=== PATIENT | male | born 1945 | race Caucasian/White ===

== ENCOUNTER 2021-11-07 00:41 | Day surgery (SDC) | payer MEDICARE, SELFPAY ==
[2021-10-25 15:10] VITALS: BMI 23.8
--- NOTE | 2021-11-06 16:33 | PM.HPGS ---
History of Present Illness History of Present Illness Consent: Risks, benefits, and alternatives have been discussed and questions answered. Patient agrees to proceed with procedure. Chief complaint: neoplasm screening Narrative: Frank Hahn is a 76 year old male For colon cancer screening. he has had polyps removed in the past. His last colonoscopy was 5 years ago Review of Systems Review of Systems: All systems reviewed & are unremarkable except as noted in HPI and below PMFSH Social History Social History Smoking status: Never smoker Alcohol intake: current Drinks per week: 1 Substance use: never Substance use type: does not use Living arrangements: with family Spiritual care concerns: No Meds Home Medications and Allergies Home Medications Medication Instructions Recorded Confirmed Type aspirin [Adult Low Dose Aspirin] 81 mg PO DAILY 10/25/21 11/07/21 History atorvastatin 40 mg PO HS 10/25/21 11/07/21 History cyclosporine [Restasis] 1 drp EACH EYE Q12H 10/25/21 11/07/21 History dorzolamide-timolol 1 drp EACH EYE BID 10/25/21 11/07/21 History felodipine 10 mg PO DAILY 10/25/21 11/07/21 History glucos sul [id number]-ghq-paona-C-Mn 1 cap PO BID 10/25/21 11/07/21 History [Glucosamine Chondroitin] latanoprost 1 drp EACH EYE HS 10/25/21 11/07/21 History multivitamin with minerals [Men's 1 tablet PO DAILY 10/25/21 11/07/21 History One Daily] quinapril-hydrochlorothiazide 1 tablet PO DAILY 10/25/21 10/25/21 History vit C,L-If-dhpqy-lutein-zeaxan 1 tablet PO BID 10/25/21 10/25/21 History [PreserVision AREDS-2] Allergies Allergy/AdvReac Type Severity Reaction Status Date / Time No Known Allergies Allergy Verified 11/07/21 07:18 Exam Const: General: alert Orientation/consciousness: patient oriented x3 Resp: Auscultation: clear to auscultation bilaterally Cardio: Rhythm: regular rhythm GI: GI Palp: Yes Soft to palpation and No Tenderness to palpation present (GI) Neuro: General: patient oriented x3 Assessment and Plan Assessment and plan (1) Colon cancer screening: Code(s): Z12.11 - Encounter for screening for malignant neoplasm of colon Status: Acute Assessment and Plan: Colonoscopy with possible biopsy or polypectomy or cautery or injection of substances.
[2021-11-07 07:21] VITALS: BP 148/73; PULSE 52; RESP 16; TEMP 36.4; O2SAT 99
[2021-11-07] MEDS: LACTATED RINGERS 1,000 ML 150 ML IV CONT (07:28)
--- NOTE | 2021-11-07 08:19 | WPDANESEPPF ---
Anes - Initial Pre Proc Eval Procedure: Operation Date: 11/07/21 08:30 Proposed Procedures p Screening Colonoscopy - Ata Delvalle MD Date/Time: 11/07/21 08:19 Surgeon: Ata Delvalle MD Pre Op Diagnosis: neoplasm screening Patient Data Age: 76 Gender: M Height: 1.8 m Weight: 79.4 kg Last Vital Signs Temp 97.6 F 11/07/21 07:21 Pulse 52 L 11/07/21 07:21 Resp 16 11/07/21 07:21 BP 148/73 H 11/07/21 07:21 Pulse Ox 99 11/07/21 07:21 Allergies Allergy/AdvReac Type Severity Reaction Status Date / Time No Known Allergies Allergy Verified 11/07/21 07:18 Home Medications Medication Instructions Recorded Confirmed Type aspirin [Adult Low Dose Aspirin] 81 mg PO DAILY 10/25/21 11/07/21 History atorvastatin 40 mg PO HS 10/25/21 11/07/21 History cyclosporine [Restasis] 1 drp EACH EYE Q12H 10/25/21 11/07/21 History dorzolamide-timolol 1 drp EACH EYE BID 10/25/21 11/07/21 History felodipine 10 mg PO DAILY 10/25/21 11/07/21 History glucos sul 3HPv-naj-ziszy-C-Mn 1 cap PO BID 10/25/21 11/07/21 History [Glucosamine Chondroitin] latanoprost 1 drp EACH EYE HS 10/25/21 11/07/21 History multivitamin with minerals [Men's 1 tablet PO DAILY 10/25/21 11/07/21 History One Daily] quinapril-hydrochlorothiazide 1 tablet PO DAILY 10/25/21 10/25/21 History vit C,B-Tu-nngzg-lutein-zeaxan 1 tablet PO BID 10/25/21 10/25/21 History [PreserVision AREDS-2] Patient hx anesthesia problems: none Family hx anesthesia problems: none Results Review: All pre-operative results and documents have been reviewed as part of the pre-operative evaluation. [facility] Social History Social History Smoking status: Never smoker Alcohol intake: current Drinks per week: 1 Substance use: never Substance use type: does not use Living arrangements: with family Spiritual care concerns: No Anes - Eval Final PreProcedure Day of Procedure 11/07/21 08:19 Patient weight: overweight Heart: regular rate and rhythm Lungs: clear to auscultation Airway: Mallampati scale class II Neurological: alert and oriented Last oral intake: >/= 8 hours ASA classification: III Emergent: no Anesthetic plan: proceed Anesthesia type and monitoring: general GIVS and standard monitoring Results Review: All pre-operative results and documents have been reviewed as part of the pre-operative evaluation. Informed Consent: The patient's anesthetic plan and its attendant risks and benefits were discussed with the patient/family/POA. Questions were solicited and answers provided to the satisfaction of the patient/family/POA.
[2021-11-07 08:50] VITALS: BP 110/58; PULSE 55; RESP 14; O2SAT 100
[2021-11-07 09:00] VITALS: BP 109/62; PULSE 57; RESP 20; O2SAT 100
[2021-11-07 09:10] VITALS: BP 132/75; PULSE 58; RESP 21; O2SAT 100
== END 2021-11-07 09:20 | disposition home or self-care (01) ==
PROVIDERS: PCP Internal Medicine; Visit Provider Internal Medicine Gastroenterology
PROC: 0DJD8ZZ Inspection of Lower Intestinal Tract, Via Natural or Artificial Opening Endoscopic (ICD-10-PCS; CPT 45378; principal; 2021-11-07 08:30)
DX: Z12.11 Encounter for screening for malignant neoplasm of colon (principal); K57.30 Diverticulosis of large intestine without perforation or abscess without bleeding; D12.4 Benign neoplasm of descending colon; Z79.82 Long term (current) use of aspirin
CPT/HCPCS: 45385; 88305; J2704; J7120

== ENCOUNTER 2022-06-05 13:00 | Outpatient (NON) | payer MEDICARE, SELFPAY | END 2022-06-05 13:01 | disposition home or self-care (01) | LOC: ANHLAB 06-06 07:54 | PROVIDERS: PCP Internal Medicine; Visit Provider Nurse Practitioner | DX: C43.59 Malignant melanoma of other part of trunk (principal) | CPT/HCPCS: 88305; 88342 ==